=== PATIENT | female | born 1980 | race Caucasian/White ===

== ENCOUNTER → 2017-11-15 | Outpatient (CLI) | payer OTHER | LOC: FIMAGING 13:38 | PROVIDERS: ATTEND Advanced Practice Midwife | DX: O09.522 Supervision of elderly multigravida, second trimester (principal); Z3A.20 20 weeks gestation of pregnancy; K51.811 Other ulcerative colitis with rectal bleeding ==

== ENCOUNTER 2018-04-01 00:46 | Observation (INO) | payer OTHER ==
[2018-04-01] MEDS ORDERED: ACETAMINOPHEN 500 MG TAB PO ONE (01:59)
== END 2018-04-01 04:31 | disposition home or self-care (01) ==
LOC: FLD 00:46
PROVIDERS: ADMIT Obstetrics & Gynecology; ATTEND Obstetrics & Gynecology
DX: O99.89 Other specified diseases and conditions complicating pregnancy, childbirth and the puerperium (principal); R10.9 Unspecified abdominal pain; Z3A.40 40 weeks gestation of pregnancy
CPT/HCPCS: G0378 ×2

== ENCOUNTER 2018-04-01 06:17 | Inpatient (IN) | payer OTHER ==
[2018-04-01] MEDS ORDERED: EPSOM SALT 454 GM TP PRN (06:32)
[2018-04-01] MEDS ORDERED: IBUPROFEN 600 MG TAB PO PRN (06:32)
[2018-04-01] MEDS ORDERED: MISOPROSTOL 200 MCG TAB PR PRN (06:32)
[2018-04-01] MEDS ORDERED: OLIVE OIL 118 ML BTL MISC PRN (06:32)
[2018-04-01] MEDS ORDERED: OXYTOCIN/RINGERS LACTATE 1,000 ML IV PRN (06:32)
[2018-04-01] MEDS ORDERED: TERBUTALINE SULFATE 1 MG/ML VIAL IV PRN (06:32)
[2018-04-01] MEDS ORDERED: LIDOCAINE 1% 300 MG/30 ML SDV SC PRN (06:32)
[2018-04-01] MEDS ORDERED: LR 1,000 ML IV PRN (06:32)
[2018-04-01] MEDS ORDERED: LIDOCAINE 1% 300 MG/30 ML SDV ONE (06:43)
[2018-04-01] MEDS ORDERED: OXYTOCIN 10 UNIT/ML VIAL ONE (06:43)
[2018-04-01] MEDS ORDERED: AMMONIA AROMATIC 1 EACH AMP IH ONE (06:43)
[2018-04-01] MEDS ORDERED: OLIVE OIL 118 ML BTL ONE (06:43)
[2018-04-01 06:44] LABS: PLATELET COUNT 295 10^3/uL (150-400)
[2018-04-01] MEDS ORDERED: MISOPROSTOL 200 MCG TAB ONE (06:44)
[2018-04-01] MEDS ORDERED: BUPIVACAINE 0.25% 30 ML SDV ONE (07:02)
[2018-04-01] MEDS ORDERED: PHENYLEPHRINE HCL 100 MCG/ML SYR ONE (07:02)
[2018-04-01] MEDS ORDERED: fentaNYL 2MCG/ML/BUP 0.1% RTU 100 ML BAG EP ONE (07:02)
[2018-04-01] MEDS ORDERED: fentaNYL 100 MCG/2 ML INJ ONE ×2 (07:03→15:44)
[2018-04-01] MEDS ORDERED: ONDANSETRON 4 MG/2 ML VIAL IVP PRN (07:57)
[2018-04-01] MEDS ORDERED: PHENYLEPHRINE HCL 100 MCG/ML SYR IVP PRN (07:57)
[2018-04-01] MEDS ORDERED: LR 500 ML IV SCH (08:00)
[2018-04-01] MEDS ORDERED: fentaNYL 2MCG/ML/BUP 0.1% RTU 100 ML EP SCH (08:00)
--- NOTE | 2018-04-01 08:02 | POSTANESTH ---
Post Anesthetic Evaluation Cardiovascular Status: Normal, Stable, Similar to Pre-Op Cond Respiratory Status: Normal, Stable, Similar to Pre-op Cond. Level of Consciousness/Mental Status: Can Participate in Eval, Alert and Oriented Pain Control: Adequate, Prn Tx Ordered Nausea/Vomiting Control: Adequate, Prn Tx Ordered Complications Possibly Related to Anesthesia: None Noted
--- NOTE | 2018-04-01 08:06 | PREANESOB ---
Obstetric Pre-Anesthesia Info - General Info Proposed Procedure: Labor and delivery. : 1 Para: 0 CHELSEY: 04/01/18 Gestational Age: 40 week(s) and 0 day(s) - Info Status: Full Term Monitors: External FHR Baseline (bpm): 150 FHR Pattern: Reassuring - Labor Status Cervical Dilation per last OB SVE: 5 PIH: No Indications for Labor Analgesia: Pain Control Labor Epidural: Proposed Anesthesia ROS: Ulcerative colitis. Allergies/Adverse Reactions: Allergy/AdvReac Type Severity Reaction Status Date / Time No Known Allergies Allergy Unverified 04/01/18 01:06 Home Medications: Medication Instructions Recorded Lialda 04/01/18 Pnv Comb.no.44/Iron/Folic Acid 1 tab PO DAILY 04/01/18 Visit Medications: Generic Name Dose Route Start Last Admin Trade Name Freq PRN Reason Stop Dose Admin Diphenhydramine HCl 25 - 50 mg 04/01/18 07:57 Benadryl Injection IVP 09/28/18 07:56 Q6HRS PRN Itching Lactated Ringer's 1,000 mls @ 0 mls/hr 04/01/18 06:32 Lr IV 04/02/18 06:31 PRN PRN SEE PROTOCOL CONDITIONS Protocol Per Protocol Oxytocin/Lactated Ringer's 1,000 mls @ 125 mls/hr 04/01/18 06:32 Pitocin 20 Units/Lr (Premix) IV PRN PRN Post bleeding Fentanyl/Bupivacaine HCl 100 mls @ 0 mls/hr 04/01/18 08:00 Fentanyl/Bupivacaine/Ns 2 Mcg/Ml 0.1% (Premix EP 04/11/18 07:59 CONT SHAHEEN Protocol As Directed Lactated Ringer's 500 mls @ 0 mls/hr 04/01/18 08:00 Lr IV 09/28/18 07:59 CONT SHAHEEN As Directed Ibuprofen 600 mg 04/01/18 06:32 Motrin PO ONCE PRN post , pain Lidocaine HCl 300 mg 04/01/18 06:32 Lidocaine Hcl 1% SC 09/28/18 06:31 ONCE PRN episiotomy Magnesium Sulfate 454 gm 04/01/18 06:32 Epsom Salt TP 09/28/18 06:31 Q1H PRN perineal discomfort Misoprostol 800 - 1,000 mcg 04/01/18 06:32 Cytotec CO ONCE PRN Vaginal Atony/Bleeding [place] Oil 118 ml 04/01/18 06:32 Sweet Oil MISC 09/28/18 06:31 ONCE PRN perineal massage Ondansetron HCl 4 mg 04/01/18 07:57 Zofran IVP 04/02/18 07:56 Q4HRS PRN Nausea/Vomiting, Can't Take PO Phenylephrine HCl 100 mcg 04/01/18 07:57 Neosynephrine IVP 09/28/18 07:56 .Q2M PRN Hypotension Terbutaline Sulfate 0.25 mg 04/01/18 06:32 Brethine IV 09/28/18 06:31 ONCE PRN Tachysystole Discontinued Medications Generic Name Dose Route Start Last Admin Trade Name Freq PRN Reason Stop Dose Admin Ammonia (Aromatic Spirit) Confirm 04/01/18 06:43 Ammonia Aromatic Administered 04/01/18 06:44 Dose 1 each IH .STK-MED ONE Bupivacaine HCl Confirm 04/01/18 07:02 Sensorcaine 0.25% Sdv Administered 04/01/18 07:03 Dose 30 ml .ROUTE .STK-MED ONE Fentanyl Confirm 04/01/18 07:03 Sublimaze Administered 04/01/18 07:04 Dose 100 mcg .ROUTE .STK-MED ONE Fentanyl/Bupivacaine HCl Confirm 04/01/18 07:02 Fentanyl/Bupivacaine/Ns 2 Mcg/Ml 0.1% (Premix Administered 04/01/18 07:03 Dose 100 ml EP .STK-MED ONE Lidocaine HCl Confirm 04/01/18 06:43 Lidocaine Hcl 1% Administered 04/01/18 06:44 Dose 300 mg .ROUTE .STK-MED ONE Misoprostol Confirm 04/01/18 06:44 Cytotec Administered 04/01/18 06:45 Dose 1,000 mcg .ROUTE .STK-MED ONE [place] Oil Confirm 04/01/18 06:43 Sweet Oil Administered 04/01/18 06:44 Dose 118 ml .ROUTE .STK-MED ONE Oxytocin Confirm 04/01/18 06:43 Pitocin Administered 04/01/18 06:44 Dose 40 unit .ROUTE .STK-MED ONE Phenylephrine HCl Confirm 04/01/18 07:02 Neosynephrine Administered 04/01/18 07:03 Dose 1,000 mcg .ROUTE .STK-MED ONE - Anesthesia History Response to Local Anesthetics: Normal Anesthesia & Operative History: No Prior Problems Family Anesthesia History: Negative - Social History Substance Use/Abuse: Denies - Vital Signs Blood Pressure: 115/74 Heart Rate: 78 Height/Weight (Nursing): Height 157.48 cm Weight 65.771 kg - Focused Exam Neck exam: FROM Mallampati Score: Class 2 Mouth exam: normal dental/mouth exam Pulmonary: no respiratory distress Cardiovascular: regular rate and rhythym Labs: 04/01/18 06:35 Patient ABO/Rh O POSITIVE 04/01/18 06:35 - Plan Anesthetic Plan: CSE Consent Signed and on Chart: Yes Patient/Guardian Understands and Agrees to Plan: Yes Urgent/Emergent Case: Gutierrez bartlett completed preop but documented later for safe timely pt care
[2018-04-01] MEDS ORDERED: LR 500 ML IV PRN (09:33)
[2018-04-01] MEDS ORDERED: OXYTOCIN/RINGERS LACTATE 500 ML IV SCH (10:00)
--- NOTE | 2018-04-01 11:07 | GHP ---
DATE OF ADMISSION: 04/01/2018 ADMISSION DIAGNOSES: 1. Intrauterine at 40 weeks. 2. Active labor. Patient is a 37-year-old, 2, para 0-0-1-0 who is 40 weeks' gestation. Her estimated date of confinement is 04/01/2018, dated by a last menstrual period of 06/19/2017, not consistent with an 8-w [place] ultrasound. Patient had 35 day cycle, so she is dated by her 8 week ultrasound. Patient has [facility] erative colitis which has been well controlled throughout her . She received regular prenat al care starting at 8 weeks gestation at [facility]. Patient had level 2 ultrasounds with [facility]'s doctors due to her ulcerative colitis. Patient began having contractions i ncreasing in frequency and intensity. She came in for a labor check yesterday and was not in active labor and returned early this morning and was 4-5 cm dilated. She requested and received an epidural which provided adequate pain relief. MEDICAL HISTORY: Significant for cervical dysplasia for which she had a LEEP, ulcerative colitis, hi story of concussion. MEDICATIONS: Lialda 4.5 g daily, vitamins, DHEA, [place] supplements. ALLERGIES: No known drug allergies. SOCIAL HISTORY: Patient is . She denies tobacco, alcohol, or drug use. FAMILY MEDICAL HISTORY: Noncontributory. BAND DIRECTOR HISTORY: Menarche age 15. Periods every 35 days lasting 4-5 days. She is a 2, para 0-0-1-0. In 2008, she had a voluntary termination of . Current has been uncompli cated. She has had serial growth ultrasounds and has been followed up with [facility] d ue to her history being AMA and history of ulcerative colitis. The patient does have a history of ce rvical dysplasia. She had a LEEP in 2011. Repeat Pap smears have been negative. She had a history of HPV. Denies any history of any other sexually transmitted diseases. REVIEW OF SYSTEMS: 10-point review of systems negative. Positive movement. Denies any loss o f fluid, any vaginal bleeding. Denies any headaches or changes in vision. PHYSICAL EXAMINATION: VITAL SIGNS: The patient's vital signs are stable. GENERAL APPEARANCE: Aler t and oriented x3. HEART: Rate is regularly irregular. LUNGS: Clear to auscultation bilaterally. ABDOMEN: Gravid, nondistended, nontender. EXTREMITIES: Reveal no calf tenderness or edema. PELVIC : Cervical exam on admission was 4-5 cm dilated, 80% effaced, and -2 station. is in the verte x presentation. Most recent exam: Patient is 8 cm dilated with a bulging bag of water and baby is a t a -2 station. heart tracing is category 1. She has been having contractions every 10 minute s. Pitocin was started for augmentation of labor. She has received an epidural and is comfortable. LABORATORY STUDIES: The patient's labs: Blood type O positive. Antibody screen negative. Rubella immune. GBS negative. HBsAg negative. HIV negative. Her PC gram glucose was 94. ASSESSMENT AND PLAN: 37-year-old 2, para 0-0-1-0, here in active labor. She has received an epidural. We will start Pitocin because of the high head position and a bulging bag of water for au gmentation of labor. /[id number]/MODL
--- NOTE | 2018-04-01 11:35 | OBPROG ---
Labor Progress Note Assessment/Plan: Assessment: Plan: Subjective/Intrapartum Course: 04/01/18 11:31 patient was examined at -0916 and patient was 9 cm and head was still ballotable with a bulging bag of water. discussed concern for potential cord prolapse so pitocin was started. at 1105 baby had a decel to the 90s with return to baseline after 5 minutes. patient was repositioned, 02 given and pitocin turned off. i examined the patient and head was better engaged but still ballotable. bag of water was bulging to the introitus. AROM with fundal pressure being applied. large amount of clear fluid noted. fecg placed without difficulty. after arom cervix was 6 cm but with the first contraction went to 9 cm. prominent pubic symphysis noted and patient was positioned into hands and knees. status remains reassuring with exception of one small variable decel. will continue close observation. Objective: 04/01/18 06:35 Patient ABO/Rh O POSITIVE 04/01/18 06:35 Temp Pulse Resp BP Pulse Ox 78 115/74 04/01/18 08:08 04/01/18 08:08 - SVE Dilation (cm): 9 Effacement (%): 100 Station: 0 Membranes: AROM Amniotic Fluid Color: Clear - Contraction Pattern Assessment Current Contraction Pattern: Regular - FHR Assessment Wise FHR Pattern Variability: Moderate FHR Category: 2 - Procedures Non-surgical Procedures: Amniotomy, FSE - AP Antepartum Course: 04/01/18 11:35 dated by 8 week ultrasound due to 35 day cycles. initiated care at [facility] at 8 weeks. hx of ulcerative colitis. well controlled in . hx leep. cervical length ultrasound normal at 16 and 20 weeks. normal genetic testing. spontaneous labor. Oxytocin Orders Assessment - Pre-Induction/Augmentation Assessment Gestational Age: 40 week(s) and 0 day(s) ICD10 Worksheet Patient Problems: Problems Problem Status Onset Normal labor Acute
[2018-04-01] MEDS ORDERED: SIMETHICONE 80 MG TAB CHEW PO PRN (16:38)
--- NOTE | 2018-04-01 16:52 | OBDEL ---
Info Type: Vaginal Presentation at Delivery: Vertex L&D Analgesia/Anesthesia Type: Epidural, Local, Nitrous GBS+: No Intrapartum Medications: Generic Name Dose Route Start Last Admin Trade Name Shawn PRN Reason Stop Dose Admin Oxytocin/Lactated Ringer's 500 mls @ 0 mls/hr 04/01/18 10:00 04/01/18 09:46 Pitocin 30 Units/Lr (Premix) IV 09/28/18 09:59 500 mls CONT SHAHEEN Administration Protocol Per Protocol Discontinued Medications Generic Name Dose Route Start Last Admin Trade Name Shawn PRN Reason Stop Dose Admin Ibuprofen 600 mg 04/01/18 06:32 04/01/18 16:26 Motrin PO 600 mg ONCE PRN Administration post , pain - Hospital Course Intrapartum: 04/01/18 11:31 patient was examined at -0916 and patient was 9 cm and head was still ballotable with a bulging bag of water. discussed concern for potential cord prolapse so pitocin was started. at 1105 baby had a decel to the 90s with return to baseline after 5 minutes. patient was repositioned, 02 given and pitocin turned off. i examined the patient and head was better engaged but still ballotable. bag of water was bulging to the introitus. AROM with fundal pressure being applied. large amount of clear fluid noted. fecg placed without difficulty. after arom cervix was 6 cm but with the first contraction went to 9 cm. prominent pubic symphysis noted and patient was positioned into hands and knees. status remains reassuring with exception of one small variable decel. will continue close observation. 04/01/18 17:23 patient pushed with good maternal effort for. overall status was reassuring. began having decelerations with pushing. was having one good push with each contraction and the rest of the contractions seemed to bring the baby up into the pelvis more. patient initially was too numb to push well and then as the epidural wore off felt too much pain so she needed to push the bolus button. multiple positions were tried with pushing, Indications for Delivery: Spontaneous Labor Vaginal Delivery - Delivery Provider Delivery Physician/CNM: Martine Shannon - Labor and Delivery Onset of Contractions Date: 03/31/18 Onset of Contractions Time: 06:00 Onset of Contractions Type: Augmented Rupture of Membranes Date: 04/01/18 Rupture of Membranes Time: 11:15 Rupture of Membranes Type: Artificial Amniotic Fluid Color: Clear Dilation Complete Date: 04/01/18 Dilation Complete Time: 12:41 Placenta Delivery Date: 04/01/18 Placenta Delivery Time: 15:49 Total Hours of Labor: 33 Non-surgical Procedures: Amniotomy, FSE Laceration: 2nd Degree, Other (Specify) (right labial) Repair: 3-0 Vaginal Sponge Count Correct: Yes Vaginal Needle Count Correct: Yes Vaginal Sweep Performed: No EBL: 200 Delivery Events: None Cord Gases: Cord Gases Cord Blood PCO2 TNP 04/01/18 16:00 Cord Base Excess TNP 04/01/18 16:00 Cord ABG pH TNP 04/01/18 16:00 Cord VBG pH 7.31 (7.20-7.42) 04/01/18 16:00 - Medications Labor Augmentation/Induction Methods Used: Pitocin Labor Augmentation/Induction Indication: Contraction Strength Inadequate Operative Report - Delivery Cord Gases: Cord Gases Cord Blood PCO2 TNP 04/01/18 16:00 Cord Base Excess TNP 04/01/18 16:00 Cord ABG pH TNP 04/01/18 16:00 Cord VBG pH 7.31 (7.20-7.42) 04/01/18 16:00 Assissted Delivery Assisted Delivery Type: Vacuum Station: +3 Pop offs (Total): 0 Pulls (Total): 1 Assisted Delivery Comment: vacuum applied after reviewed recommendations of expediting delivery. discussed risks and benefits of c section and vacuum assisted vaginal delivery. patient and fob agreeable with attempting vacuum assisted vaginal delivery [employer] Data CHELSEY: 04/01/18 Gestational Age: 40 week(s) and 0 day(s) Wise Delivery Date: 04/01/18 Delivery Time: 15:43 Sex of Infant: Female Score (1 Min): 8 Score (5 Min): 9 ICD10 Worksheet Patient Problems: Problems Problem Status Onset Normal labor Acute
[2018-04-01] MEDS: DOCUSATE SODIUM 100 MG CAP PO PRN (22:17)
[2018-04-01] MEDS: ACETAMINOPHEN 325 MG TAB PO SCH ×2 (22:17→22:20)
[2018-04-01] MEDS: IBUPROFEN 600 MG TAB PO SCH (22:19)
[2018-04-02] MEDS: ACETAMINOPHEN 325 MG TAB PO SCH ×4 (04:02→22:51)
[2018-04-02] MEDS: IBUPROFEN 600 MG TAB PO SCH ×4 (04:05→23:35)
[2018-04-02] MEDS: DOCUSATE SODIUM 100 MG CAP PO PRN ×2 (10:29→20:57)
--- NOTE | 2018-04-02 10:49 | OBPP ---
Progress Note Assessment/Plan: Assessment: 1) s/p VAVD PPD # 1 - pt is stable Plan: Continue routine pp care Encourage ambulation Work with Plan for d/c home in am 9/12 04/02/18 10:48 Subjective/ Course: 04/02/18 10:47 Pt seen and examined. Doing well, with no complaints. Just got out of the shower. Mild cramping and a "sore bottom", but relief with Motrin. She is OOB, yesenia regular diet, voiding and no flatus yet. Mod lochia. BF is going well so far. Plans on going home tomorrow. Objective: 04/01/18 06:35 Patient ABO/Rh O POSITIVE 04/01/18 06:35 Temp Pulse Resp BP Pulse Ox 36.2 C 78 16 102/64 96 04/02/18 08:00 04/02/18 08:00 04/02/18 08:00 04/02/18 08:00 04/02/18 08:00 Uterine Position/Fundal Height: Umbilicus -2 Uterine Tone: Firm Physical Exam - Physical Exam General Appearance: WD/WN, alert, no apparent distress Respiratory: lungs clear, normal breath sounds Cardiac/Chest: regular rate, rhythm Abdomen: normal bowel sounds, non-tender, soft Extremities: non-tender, normal inspection Skin: normal color, warm/dry Neuro/Psych: alert, normal mood/affect, oriented x 3
[2018-04-02] MEDS: HYDROCODONE/APAP 5/325 TAB PO PRN ×2 (13:42→20:57)
[2018-04-03] MEDS: ACETAMINOPHEN 325 MG TAB PO SCH ×2 (00:46→11:44)
[2018-04-03] MEDS: IBUPROFEN 600 MG TAB PO SCH ×2 (05:41→11:45)
[2018-04-03] MEDS: HYDROCODONE/APAP 5/325 TAB PO PRN (05:41)
[2018-04-03] MEDS: DOCUSATE SODIUM 100 MG CAP PO PRN (08:49)
[2018-04-03 09:01] VITALS: BP 120/83
--- NOTE | 2018-04-03 11:27 | OBPP ---
Progress Note Assessment/Plan: Assessment: PPD 2 - s/p VAVD D/c home mild anemia Plan: iron, D/C 04/03/18 11:23 Subjective/ Course: 04/02/18 10:47 Pt seen and examined. Doing well, with no complaints. Just got out of the shower. Mild cramping and a "sore bottom", but relief with Motrin. She is OOB, yesenia regular diet, voiding and no flatus yet. Mod lochia. BF is going well so far. Plans on going home tomorrow. 04/03/18 11:27 Pt seen. doing well. Baby has been latching well. bld is much warp placer. urinating ok but feels little different sensation and less control. Ok with ibu /tyl. ready for d/c Objective: 04/01/18 06:35 Patient ABO/Rh O POSITIVE 04/01/18 06:35 Temp Pulse Resp BP Pulse Ox 36.5 C 74 15 120/83 H 98 04/03/18 08:00 04/03/18 08:00 04/03/18 08:00 04/03/18 08:00 04/03/18 08:00 Uterine Position/Fundal Height: Umbilicus -2 Uterine Tone: Firm Physical Exam - Physical Exam Abdomen: non-tender, soft, other (FF at umb -2) Extremities: non-tender, pedal edema (minimal) Skin: normal color, warm/dry Neuro/Psych: alert, normal mood/affect
--- NOTE | 2018-04-03 16:51 | OBGCSDC ---
General Delivery Information - General Info : 1 Para: 1 Abortions: 0 Type: Vaginal L&D Analgesia/Anesthesia Type: Epidural, Local, Nitrous Admission Date: 04/01/18 Labs: Patient ABO/Rh O POSITIVE 04/01/18 06:35 Hct 35.5 % (38.0-47.0) L 04/01/18 06:35 - Hospital Course Antepartum: 04/01/18 11:35 dated by 8 week ultrasound due to 35 day cycles. initiated care at [facility] at 8 weeks. hx of ulcerative colitis. well controlled in . hx leep. cervical length ultrasound normal at 16 and 20 weeks. normal genetic testing. spontaneous labor. Intrapartum: 04/01/18 11:31 patient was examined at -0916 and patient was 9 cm and head was still ballotable with a bulging bag of water. discussed concern for potential cord prolapse so pitocin was started. at 1105 baby had a decel to the 90s with return to baseline after 5 minutes. patient was repositioned, 02 given and pitocin turned off. i examined the patient and head was better engaged but still ballotable. bag of water was bulging to the introitus. AROM with fundal pressure being applied. large amount of clear fluid noted. fecg placed without difficulty. after arom cervix was 6 cm but with the first contraction went to 9 cm. prominent pubic symphysis noted and patient was positioned into hands and knees. status remains reassuring with exception of one small variable decel. will continue close observation. 04/01/18 17:23 patient pushed with good maternal effort for. overall status was reassuring. began having decelerations with pushing. was having one good push with each contraction and the rest of the contractions seemed to bring the baby up into the pelvis more. patient initially was too numb to push well and then as the epidural wore off felt too much pain so she needed to push the bolus button. multiple positions were tried with pushing, : 04/02/18 10:47 Pt seen and examined. Doing well, with no complaints. Just got out of the shower. Mild cramping and a "sore bottom", but relief with Motrin. She is OOB, yesenia regular diet, voiding and no flatus yet. Mod lochia. BF is going well so far. Plans on going home tomorrow. 04/03/18 11:27 Pt seen. doing well. Baby has been latching well. bld is much meat boner and slicer. urinating ok but feels little different sensation and less control. Ok with ibu /tyl. ready for d/c Vaginal - Delivery Provider Delivery Physician/CNM: Martine Shannon - Diagnosis Labor: Augmented Rupture of Membranes Type: Artificial Amniotic Fluid Color: Clear Laceration: 2nd Degree, Other (Specify) (right labial) Repair: 3-0 Delivery Events: None - Procedures Assisted Delivery Type: Vacuum Non-surgical Procedures: Amniotomy, FSE - Delivery Non-surgical Procedures: Amniotomy, FSE EBL: 200 Data CHELSEY: 04/01/18 Gestational Age: 40 week(s) and 2 day(s) Wise Delivery Date: 04/01/18 Delivery Time: 15:43 Sex of Infant: Female [place] Weight (gm): 2842 g Score (1 Min): 8 Score (5 Min): 9 Discharge Information - Discharge Information Condition: Good Instruction/Follow Up: See Instruction Sheet, Two Weeks (2-4 wks with therapist) , Six Weeks (with Dr Shannon)
== END 2018-04-03 12:30 | disposition home or self-care (01) | DRG 775 ==
LOC: FLD 06:17 → OBSVTOIN 06:33 → FOB 17:51
PROVIDERS: ADMIT Obstetrics & Gynecology; ATTEND Obstetrics & Gynecology
PROC: 10907ZC Drainage of Amniotic Fluid, Therapeutic from Products of Conception, Via Natural or Artificial Opening (ICD-10-PCS; principal; 2018-04-01)
PROC: 10D07Z6 Extraction of Products of Conception, Vacuum, Via Natural or Artificial Opening (ICD-10-PCS; principal; 2018-04-01)
PROC: 0KQM0ZZ Repair Perineum Muscle, Open Approach (ICD-10-PCS; principal; 2018-04-01)
DX: O70.1 Second degree perineal laceration during delivery (principal); O76 Abnormality in fetal heart rate and rhythm complicating labor and delivery; O90.81 Anemia of the puerperium; Z3A.40 40 weeks gestation of pregnancy; Z37.0 Single live birth
CPT/HCPCS: J2370; J2590; J3010